=== PATIENT | male | born 1955 | race Caucasian/White ===

== ENCOUNTER 2019-03-29 05:27 | Emergency (ER) | payer SELFPAY ==
--- NOTE | 2019-03-29 06:04 | ER Document Report ---
ED Resuscitation - General Chief Complaint: Unresponsive Stated Complaint: UNRESPONSIVE Time Seen by Provider: 03/29/19 05:55 Mode of Arrival: Medic Information source: Emergency Med Personnel - [facility] Witnessed arrest: No Bystander CPR?: No Onset: Just prior to arrival Notes: This is a 63[place]year-[place] [employer] and apparently was found down unknown amount of time he ate when EMS arrived apparently he was in asystole personnel there had started CPR EMS when they took over apparently had given in the field a total of 7 epinephrine have to return of spontaneous circulations patient was also given 2 of Narcan and atropine when he came back for heart rate of 40 when he arrived at 525 he did have pulses bilaterally however patient had a gel S airway in place there were no breath sounds heard on the left side of very little breath sounds on the right therefore CPR was continued and patient was then intubated by myself due to a faulty light on the scope first attempt apparently was not successful patient then while after changing to handle the 7.5 ET tube was placed at 23 cm at the gum good breath sounds are bilaterally no sounds over the stomach CPR when he initially got here was continued he was given 1 of epinephrine also 1 a bicarb CPR was continued throughout. Patient was given a total of 4 of epinephrine IV. NG tube was placed to decompress the stomach as it was thought due to the airway of the stomach with air. Got up without a pulse or a blood pressure for 17 minutes incompatible with life and continued in asystole. Using the ultrasound there was no left ventricle movement. Therefore all efforts were ceased at 5:50 AM. This will be an ME case. There is no family available to inform. - Related Data Allergies/Adverse Reactions: Unable to Assess Allergy (Unverified 03/29/19 06:11) Past Medical History - Social History Smoking Status: Unknown if Ever Smoked Family History: None Course - Laboratory Laboratory results interpreted by me: 03/29/19 05:37 POC Glucose 407 H* Procedures - Intubation Orotracheal Airway evaluation: Copious secretions, Large tongue Mallampati Classification: Class 3 Medications: Lidocaine, Atropine, Etomidate, Succinylcholine, Versed, Fentanyl, Ketamine, Diprivan, Pancuronium, Vecuronium, Other Intubation method: Orotracheal Blade type: Cari Blade size: 3 Equipment used: Other - laryngoscope with #4 mac blade ETT size: 7.5 ETT secured at: Lips ETT secured at (cm): 23 Breath Sounds after Intubation: Equal - No sounds over stomach. Discharge - Discharge Clinical Impression: Cardiopulmonary arrest Disposition:
--- NOTE | 2019-03-29 07:23 | EKG REPORT ---
SEVERITY:- ABNORMAL ECG - SINUS RHYTHM FIRST DEGREE AV BLOCK IVCD, CONSIDER ATYPICAL RBBB PROBABLE INFERIOR INFARCT, AGE INDETERMINATE ST DEPRESSION, CONSIDER ISCHEMIA, LAT LEADS : Confirmed by: Kayla Tamayo 29-Mar-2019 07:21:52
[2019-03-29 07:46] VITALS: BP 74/50
[2019-03-29] MEDS ORDERED: SODIUM BICARBONATE 8.4% INJ 50 MEQ/50 ML DISP.SYRIN ONE (14:08)
[2019-03-29] MEDS ORDERED: EPINEPHRINE INJ 1 MG/10 ML DISP.SYRIN ONE (14:08)
== END 2019-03-29 07:00 | disposition expired ==
LOC: ER 05:27
DX: I46.9 Cardiac arrest, cause unspecified (principal)
CPT/HCPCS: 93005; 99285; 82962; 93010; 31500; J0171; J3490